=== PATIENT | female | born 1990 | race Two or more races ===

== ENCOUNTER → 2024-10-16 | Outpatient (REF) | payer OTHER | LOC: M PLALAB 11:49 | PROVIDERS: ATTEND Nurse Practitioner Family | DX: N89.8 Other specified noninflammatory disorders of vagina (principal) ==

== ENCOUNTER → 2024-10-24 | Outpatient (CLI) | payer OTHER | LOC: M WHC 14:36 | PROVIDERS: ATTEND Obstetrics & Gynecology | DX: Z34.80 Encounter for supervision of other normal pregnancy, unspecified trimester (principal); Z3A.23 23 weeks gestation of pregnancy ==

== ENCOUNTER → 2024-12-22 | Outpatient (CLI) | payer OTHER | LOC: M WHC 08:56 | PROVIDERS: ATTEND Advanced Practice Midwife | DX: O32.1XX0 Maternal care for breech presentation, not applicable or unspecified (principal); O24.415 Gestational diabetes mellitus in pregnancy, controlled by oral hypoglycemic drugs; Z3A.32 32 weeks gestation of pregnancy ==

== ENCOUNTER → 2025-01-19 | Outpatient (REF) | payer OTHER | LOC: M SFHCWAGY 12:45 | PROVIDERS: ATTEND Advanced Practice Midwife | DX: Z3A.36 36 weeks gestation of pregnancy (principal) ==

== ENCOUNTER → 2025-01-19 | Outpatient (CLI) | payer OTHER | LOC: M WHC 09:08 | PROVIDERS: ATTEND Advanced Practice Midwife | DX: O24.415 Gestational diabetes mellitus in pregnancy, controlled by oral hypoglycemic drugs (principal); Z3A.36 36 weeks gestation of pregnancy ==

== ENCOUNTER 2025-02-13 19:17 | Inpatient (IN) | payer OTHER ==
[~2025-02-13] VITALS: Ht 172.7 cm; Wt 140.0 kg
[2025-02-14] MEDS ORDERED: METHYLERGONOVINE MALEATE 0.2 MG/ML 1 ML VIAL IM PRN (16:35)
[2025-02-14] MEDS ORDERED: LIDOCAINE 1% MDV 20 ML VIAL INFIL PRN (16:35)
[2025-02-14] MEDS ORDERED: OXYTOCIN DRIP 30 UNITS in IV 1 EA IV PRN (16:35)
[2025-02-14] MEDS ORDERED: TRANEXAMIC ACID INJection 1,000 MG in NS 100 ML IV PRN (16:35)
[2025-02-14] MEDS ORDERED: CARBOPROST TROMETHAMINE 250 MCG/ML AMP IM PRN (16:35)
[2025-02-14] MEDS ORDERED: ECOT81TA5 PO (17:00)
[2025-02-14] MEDS ORDERED: MORI500C PO (17:00)
[2025-02-14] MEDS ORDERED: PREN200C PO (17:00)
[2025-02-14] MEDS ORDERED: METF10004 PO (17:00)
[2025-02-14 17:18] VITALS: BP 135/81
[2025-02-14 17:38] LABS: PLATELET COUNT, AUTOMATED 224 10^3/uL (150-450)
[2025-02-14] MEDS ORDERED: MORPHINE PRES-FREE INJ 10 MG/10 ML VIAL As Ordered ONE (17:49)
[2025-02-14] MEDS ORDERED: KETOROLAC 30 MG/ML 1 ML VIAL As Ordered ONE (17:50)
[2025-02-14] MEDS ORDERED: OXYTOCIN 30UNITS IN 0.9% NaCl 500ML IV BAG IV ONE (17:50)
[2025-02-14] MEDS ORDERED: ONDANSETRON 4MG/2ML VIAL As Ordered ONE (17:50)
[2025-02-14] MEDS ORDERED: ACETAMINOPHEN 1000MG/100ML IV BAG As Ordered ONE (17:50)
[2025-02-14] MEDS: BICITRA 30 ML SOLN UDC PO ONE (17:55)
[2025-02-14] MEDS: ceFAZolin SODIUM 3 GM in DEXTROSE 5% (D5W) MINI-BAG PLU 100 ML IV ONE (17:55)
[2025-02-14] MEDS: LACTATED RINGER'S 1000 ML IV STA (17:56)
[2025-02-14] MEDS: LR 1,000 ML IV SCH ×2 (17:56→22:54)
[2025-02-14] MEDS: AZITHROMYCIN INJ 500 MG, VIAL MATE ADAPTER 1 EACH in NS 250 ML IV ONE (17:56)
[2025-02-14 18:33] LABS: HIV 1&2 SCREEN NEGATIVE (NEGATIVE)
[2025-02-14 18:41] LABS: HEPATITIS C VIRUS ABY INDEX < 0.02 INDEX (<0.8)
[2025-02-14] MEDS ORDERED: MIDAZOLAM INJ 2 MG/2 ML VIAL As Ordered ONE (18:46)
[2025-02-14] MEDS ORDERED: PHENYLephrine 500MCG 5ML (100MCG/ML) SYRINGE As Ordered ONE (19:17)
[2025-02-14 19:36] LABS: CORD GAS ABE A -3.4; CORD GAS HCO3 A 21.8 MMOL/L; CORD GAS O2 SAT A 63.4 %; CORD GAS PCO2 A 40.1 mmHg; CORD GAS PH A 7.354 UNITS; CORD GAS PO2 A 25.0 mmHg; CORD GAS SBC A 20.9 MMOL/L; CORD GAS TCO2 A 23.1 MMOL/L
[2025-02-14 19:37] LABS: CORD GAS ABE V -3.5; CORD GAS HCO3 V 20.8 MMOL/L; CORD GAS O2 SAT V 76.3 %; CORD GAS PCO2 V 35.4 mmHg; CORD GAS PH V 7.387 UNITS; CORD GAS PO2 V 30.6 mmHg; CORD GAS SBC V 21.1 MMOL/L; CORD GAS TCO2 V 21.9 MMOL/L
[2025-02-14] MEDS ORDERED: LABETALOL 100 MG/20 ML VIAL As Ordered ONE (19:44)
[2025-02-14 20:02] VITALS: TEMP 97.6
[2025-02-14] MEDS ORDERED: ONDANSETRON 4MG/2ML VIAL IV PRN ×2 (20:10→20:20)
[2025-02-14] MEDS ORDERED: PERCOCET 5MG/325MG TAB PO PRN ×2 (20:10)
[2025-02-14] MEDS ORDERED: ANUSOL HC CREAM 30 GM TOP PRN (20:10)
[2025-02-14] MEDS ORDERED: MORPHINE 4 MG/ML 1 ML VIAL IV PRN (20:10)
[2025-02-14] MEDS ORDERED: RHOGAM 300MCG (1500IU) INJ IM SCH (20:10)
[2025-02-14] MEDS ORDERED: SIMETHICONE 80MG CHEW TAB PO PRN (20:10)
[2025-02-14] MEDS ORDERED: diphenhydrAMINE 50 MG/ML VIAL IV PRN ×2 (20:20)
[2025-02-14] MEDS ORDERED: SLF 3 ML SYR IV SCH (20:20)
[2025-02-14] MEDS ORDERED: MEPERIDINE 25 MG/ML 1 ML VIAL IV PRN (20:20)
[2025-02-14] MEDS ORDERED: **NOTE PATIENT COMMENT** MISC XX SCH ×2 (20:20)
[2025-02-14] MEDS ORDERED: HYDROMORPHONE HCL 0.5 MG/0.5 ML SYRINGE IV PRN (20:20)
[2025-02-14] MEDS ORDERED: NALOXONE INJ 0.4 MG/1 ML VIAL IV PRN ×4 (20:20)
[2025-02-14 21:40] VITALS: BP 136/89; O2SAT 100
[2025-02-14] MEDS: OXYTOCIN DRIP 30 UNITS in IV 1 EA IV SCH (21:40)
[2025-02-14] MEDS: SLF 3 ML SYR IV SCH (21:41)
[2025-02-14 22:10] VITALS: BP 142/79; O2SAT 97
[2025-02-14 22:40] VITALS: BP 138/78; O2SAT 98
[2025-02-14 23:40] VITALS: BP 134/70; O2SAT 98
[2025-02-14] MEDS: DOCUSATE SODIUM 100 MG CAPSULE PO SCH (23:52)
[2025-02-14] MEDS: KETOROLAC 30 MG/ML 1 ML VIAL IV SCH (23:53)
[2025-02-14] MEDS: ENOXAPARIN 40 MG/0.4 ML SYRINGE (J1650 PER 10MG) SC SCH (23:53)
[2025-02-15] VITALS (7 sets, daily range): BP systolic 125–140; BP diastolic 64–84; O2SAT 97–98
[2025-02-15] MEDS ORDERED: UNRESOLVED CLARIFICATION ENTRY XX SCH (00:01)
[2025-02-15 07:23] LABS: PLATELET COUNT, AUTOMATED 184 10^3/uL (150-450)
[2025-02-15] MEDS: PRENATAL VITAMINS CHEWABLE TABLET PO SCH (08:09)
[2025-02-15] MEDS: ACETAMINOPHEN 500 MG TAB PO PRN (18:12)
[2025-02-15] MEDS: IBUPROFEN 800 MG TAB PO SCH (20:38)
[2025-02-15] MEDS: traMADol 50 MG TAB PO PRN (22:53)
[2025-02-16 02:00] VITALS: BP 129/87; O2SAT 97
[2025-02-16 06:00] VITALS: BP 136/78; O2SAT 97
[2025-02-16] MEDS: MEASLES,MUMPS,RUBELLA VACCINE INJ (MMR-II) SC.IMMUN ONE (07:29)
[2025-02-16 10:00] VITALS: BP 137/93; O2SAT 97
[2025-02-16] MEDS ORDERED: IBUP80TA PO (10:21)
[2025-02-16] MEDS ORDERED: COLA100C5 PO (10:21)
[2025-02-16 14:00] VITALS: BP 150/76; O2SAT 98
[2025-02-16 18:00] VITALS: BP 136/72; O2SAT 99
[2025-02-17 06:00] VITALS: BP 145/69; O2SAT 98
[2025-02-17 11:22] LABS: PLATELET COUNT, AUTOMATED 222 10^3/uL (150-450)
[2025-02-17 11:47] LABS: ALT/SGPT 24 U/L (7.0-40); AST/SGOT 18 U/L (<34); CALCIUM LEVEL 8.5 MG/DL (8.5-10.1); CARBON DIOXIDE LEVEL 22 MMOL/L (20-31); CHLORIDE LEVEL 108 MMOL/L (98-107); CREATININE FOR GFR 0.76 MG/DL (0.55-1.30); GLOMERULAR FILTRATION RATE > 90.0 (>60); POTASSIUM SERUM 4.2 MMOL/L (3.5-5.1); SODIUM LEVEL 143 MMOL/L (136-145)
== END 2025-02-17 14:45 | disposition home or self-care (01) | DRG 540 ==
LOC: M LDI 02-14 16:15 → M OBS 02-14 21:29
PROVIDERS: ADMIT Obstetrics & Gynecology; ATTEND Obstetrics & Gynecology
PROC: 10D00Z1 Extraction of Products of Conception, Low, Open Approach (ICD-10-PCS; principal; 2025-02-14 18:00)
DX: O34.211 Maternal care for low transverse scar from previous cesarean delivery (principal); O40.3XX0 Polyhydramnios, third trimester, not applicable or unspecified; O99.214 Obesity complicating childbirth; E66.9 Obesity, unspecified; Z3A.39 39 weeks gestation of pregnancy; Z91.013 Allergy to seafood; Z91.0120 Allergy to eggs, unspecified; Z79.82 Long term (current) use of aspirin; Z79.84 Long term (current) use of oral hypoglycemic drugs; Z79.899 Other long term (current) drug therapy; O36.63X0 Maternal care for excessive fetal growth, third trimester, not applicable or unspecified; O32.1XX0 Maternal care for breech presentation, not applicable or unspecified; Z37.0 Single live birth

== ENCOUNTER 2025-02-18 16:26 | Emergency (ER) | payer OTHER ==
[~2025-02-18] VITALS: Ht 172.7 cm; Wt 137.0 kg
[~2025-02-18 16:26] MED LIST: COLA100C5 PO; ECOT81TA5 PO; IBUP80TA PO; METF10004 PO; MORI500C PO; PREN200C PO
[2025-02-18 17:22] LABS: BASO # 0.1 10^3/uL (0.0-0.2); BASO % 0.6 % (0.0-1.0); EOS # 0.5 10^3/uL (0.0-0.5); EOS % 3.7 % (0.0-3.0); LYMPH # 3.2 10^3/uL (1.5-5.0); LYMPH % 26.0 % (24.0-44.0); MONO # 0.8 10^3/uL (0.0-0.8); MONO % 6.6 % (2.0-8.0); NEUTROPHILS # 7.6 10^3/uL (1.5-8.5); NEUTROPHILS % 62.1 % (36.0-66.0); PLATELET COUNT, AUTOMATED 258 10^3/uL (150-450)
[2025-02-18 17:38] LABS: APPEARANCE, URINE CLEAR (CLEAR); BACTERIA, URINE AUTO NEGATIVE (NEGATIVE); BILIRUBIN, URINE AUTO NEGATIVE (NEGATIVE); BLOOD, URINE BLOOD 3+ (NEGATIVE); GLUCOSE, URINE (UA) AUTO NEGATIVE (NEGATIVE); KETONE, URINE AUTO NEGATIVE (NEGATIVE); LEUKOCYTE ESTERASE, URINE AUTO NEGATIVE (NEGATIVE); MUCUS, URINE SMALL (NEGATIVE); NITRITE, URINE AUTO NEGATIVE (NEGATIVE); PROTEIN, URINE AUTO NEGATIVE (NEGATIVE); RBC, URINE AUTO 25 /HPF (0-3); SPECIFIC GRAVITY URINE AUTO 1.003 (1.002-1.035); SQUAMOUS EPITHELIAL CELL UR AU 2 /HPF (0-6); UROBILINOGEN, URINE AUTO 0.2 mg/dL (0.0-2.0); WBC, URINE AUTO 5 /HPF (0-3)
[2025-02-18 17:51] LABS: CK-MB VALUE MASS < 1.0 NG/ML (<3.6)
[2025-02-18 17:53] LABS: ALT/SGPT 26 U/L (7.0-40); AST/SGOT 22 U/L (<34); CALCIUM LEVEL 9.2 MG/DL (8.5-10.1); CARBON DIOXIDE LEVEL 24 MMOL/L (20-31); CHLORIDE LEVEL 106 MMOL/L (98-107); CPK CREATINE PHOSPHOKINASE 85 U/L (34-145); CREATININE FOR GFR 0.75 MG/DL (0.55-1.30); GLOMERULAR FILTRATION RATE > 90.0 (>60); MAGNESIUM LEVEL 1.4 MG/DL (1.8-2.4); POTASSIUM SERUM 3.7 MMOL/L (3.5-5.1); SODIUM LEVEL 142 MMOL/L (136-145)
[2025-02-18 17:56] LABS: INR 0.84
[2025-02-18] MEDS: ACETAMINOPHEN 325 MG TAB PO ONE (18:58)
[2025-02-18] MEDS: MAG SULF 1GM/100ML (MAG RUN) 1 GM in IV 1 EA IV ONE (18:58)
[2025-02-18] MEDS: MAGNESIUM OXIDE 400 MG TAB PO ONE (18:58)
[2025-02-18 20:02] VITALS: BP 159/72; TEMP 98.8; O2SAT 98
== END 2025-02-18 20:13 | disposition home or self-care (01) ==
LOC: M ED 16:26
DX: R07.9 Chest pain, unspecified (principal); E83.42 Hypomagnesemia; I10 Essential (primary) hypertension; E28.2 Polycystic ovarian syndrome; F41.9 Anxiety disorder, unspecified; F32.A Depression, unspecified; Z87.891 Personal history of nicotine dependence; Z91.040 Latex allergy status; Z91.013 Allergy to seafood; Z91.0120 Allergy to eggs, unspecified; Z79.1 Long term (current) use of non-steroidal anti-inflammatories (NSAID); Z79.84 Long term (current) use of oral hypoglycemic drugs; Z79.810 Long term (current) use of selective estrogen receptor modulators (SERMs); Z79.899 Other long term (current) drug therapy
CPT/HCPCS: 71045; 80048; 80076; 81001; 82550; 82553; 83690; 83735; 84484; 84550; 85025; 85384; 85610; 85730; 86850; 86900; 86901; 93005; 93041; 94760; 96365; 99285; J3475